=== PATIENT | male | born 1990 | race Caucasian/White ===

== ENCOUNTER 2018-07-25 17:48 | Emergency (ER) | payer OTHER ==
[~2018-07-25] VITALS: Ht 175.3 cm; Wt 141.5 kg
[2018-07-25 18:19] VITALS: BP 139/97
--- NOTE | 2018-07-25 20:18 | NUR ---
PT AMBULATED TO BED 5
--- NOTE | 2018-07-25 20:20 | NUR ---
Patient ambulated to bed 5. RN evaluating patient at bedside.
--- NOTE | 2018-07-25 20:20 | NUR ---
PATIENT PRESENTS TO ED WITH C/O LEFT SIDE TOOTHACE PAIN ON BOTH UPPER AND LOWER SIDE OF MOUTH. PT DENIES N/V/D; SKIN IS PINK/WARM/DRY; AAOX4 WITH EVEN AND STEADY GAIT; LUNGS CLEAR BL; HR EVEN AND REGULAR; PATIENT STATES PAIN OF 10/10 AT THIS TIME; VSS; PATIENT POSITIONED FOR COMFORT; HOB ELEVATED; BEDRAILS UP X2; BED DOWN. ER MD MADE AWARE OF PT STATUS.
--- NOTE | 2018-07-25 21:27 | NUR ---
Dr. Zaragoza evaluating patient at bedside.
[2018-07-25] MEDS ORDERED: HYDROcodone/APAP 10/325 MG 1 TAB TAB PO ONE (21:30)
[2018-07-25] MEDS ORDERED: HYDROcodone/APAP 10/325 MG 1 TAB TAB ONE (21:43)
[2018-07-25 21:50] VITALS: BP 128/82
--- NOTE | 2018-07-25 21:50 | NUR ---
Patient discharged with v/s stable. Written and verbal after care instructions given and explained. Patient alert, oriented and verbalized understanding of instructions. Ambulatory with steady gait. All questions addressed prior to discharge. ID band removed. Patient advised to follow up with PMD. Rx of PENICILLIN 250MG given. Patient educated on indication of medication including possible reaction and side effects. Opportunity to ask questions provided and answered.
== END 2018-07-25 21:50 | disposition home or self-care (01) ==
LOC: MED 17:48
DX: K08.89 Other specified disorders of teeth and supporting structures (principal); R03.0 Elevated blood-pressure reading, without diagnosis of hypertension
CPT/HCPCS: 99283